=== PATIENT | male | born 1975 | race Caucasian/White ===

== ENCOUNTER 2023-10-28 07:39 | Outpatient (OUT) | payer OTHER, SELFPAY ==
[2023-10-28 08:09] LABS: Hematocrit 44.3 % (42.0-54.0); Hemoglobin 14.5 g/dL (14.0-18.0); Mean Corpuscular HGB Conc 32.7 g/dL (29.9-35.2); Mean Corpuscular Hemoglobin 29.2 pg (25.9-34.0); Mean Corpuscular Volume 89.1 fL (80.0-94.0); Mean Platelet Volume 8.9 fL (9.5-13.5); Platelet Count 302 10^3/uL (150-450); Red Blood Count 4.97 10^6/uL (4.70-6.10); Red Cell Distribution Width 13.2 % (11.0-15.0); White Blood Count 15.5 10^3/uL (4.0-11.0)
[2023-10-28 09:24] LABS: Internal Control Within Normal Limits; Mono Screen POSITIVE (NEGATIVE)
[2023-10-28 09:31] LABS: Alanine Aminotransferase 483 U/L (16-63); Albumin Globulin Ratio 0.9; Albumin Level 3.3 g/dL (3.4-5.0); Alkaline Phosphatase 206 U/L (46-116); Anion Gap 11.5; Aspartate Amino Transferase 257 U/L (15-37); BUN Creatinine Ratio 7.9; Bilirubin Total 1.1 mg/dL (0.2-1.0); Calcium 8.2 mg/dL (8.5-10.1); Carbon Dioxide 27.6 mmol/L (21.0-32.0); Chloride 103 mmol/L (98-107); Estimated GFR (African America >60 (>=60); Estimated GFR (Non-African Ame >60 (>=60); Globulin 3.6 g/dL; Glucose 101 mg/dL (74-106); Potassium 4.1 mmol/L (3.5-5.1); Sodium 138 mmol/L (136-145); Thyroid Stimulating Hormone 2.393 uIU/mL (0.358-3.740); Total Protein 6.9 g/dL (6.4-8.2)
[2023-10-28 09:35] LABS: Free T4 1.32 ng/dL (0.76-1.46)
[2023-10-28 11:30] LABS: Atypical Lymphocytes Abs Man 2.63; Lymphocytes Absolute Manual 7.59 10^3/uL (1.20-3.80); Monocytes Absolute Manual 0.62 10^3/uL (0.30-0.80); Segmented Neut Absolute Manual 4.65 10^3/uL (1.4-6.5)
[2023-10-29 07:09] LABS: Antistreptolysin O Ab 299.4 IU/mL (0.0-200.0)
[2023-10-29 17:09] LABS: EBV Ab VCA, IgG 34.3 U/mL (0.0-17.9); EBV Ab VCA, IgM >160.0 U/mL (0.0-35.9); EBV Nuclear Antigen Ab, IgG <18.0 U/mL (0.0-17.9)
== END 2023-10-28 07:40 | disposition home or self-care (01) ==
LOC: LAB 07:43
DX: R53.83 Other fatigue (principal)
CPT/HCPCS: 36415; 80053; 84439; 84443; 85007; 85027; 86060; 86308; 86664; 86665